=== PATIENT | female | born 1990 | race Two or more races ===

== ENCOUNTER 2021-10-22 04:58 | Inpatient (IN) | payer MEDICAID ==
[2021-10-20 10:11] LABS: Basophils # (auto) 0 10 ^3/uL (0-0.2); Basophils % (auto) 0.2 % (0.0-2.0); Eosinophils # (auto) 0 10 ^3/uL (0-0.8); Eosinophils % (auto) 0.2 % (0.0-7.0); Hematocrit 34.4 % (36.0-46.0); Hemoglobin 11.4 g/dL (12.2-16.2); Lymphocytes # (auto) 1.1 10 ^3/uL (0.4-5.4); Lymphocytes % (auto) 19.2 % (10.0-50.0); Mean Corpuscular Hemoglobin 28.6 pg (28.0-32.0); Mean Corpuscular Hgb Conc. 33.1 g/dL (32.0-36.0); Mean Corpuscular Volume 86.3 fL (80.0-100.0); Monocytes # (auto) 0.3 10 ^3/uL (0-1.3); Monocytes % (auto) 6.2 % (0.0-12.0); Neutrophils # (auto) 4.1 10 ^3/uL (1.6-8.6); Neutrophils % (auto) 74.2 % (37.0-80.0); Red Blood Cells 3.99 10^6/uL (4.0-5.20); White Blood Cell 5.5 10^3/uL (4.4-10.8)
[2021-10-20 10:15] LABS: Urine Bacteria FEW /hpf (None Seen); Urine Blood Negative /uL (Negative); Urine Mucus FEW (None Seen); Urine WBC 36 /hpf (0 - 5)
[2021-10-20 10:22] LABS: Amphetamine Screen, Urine NEGATIVE (NEGATIVE); Barbiturate Scree,Urine NEGATIVE (NEGATIVE); Benzodiazephine Screen, Urine NEGATIVE (NEGATIVE); Cannabinoid Screen, Urine NEGATIVE (NEGATIVE); Cocaine Screen, Urine NEGATIVE (NEGATIVE); Opiate Scree,Urine NEGATIVE (NEGATIVE); Phencyclidine Screen, Urine NEGATIVE (NEGATIVE)
[2021-10-20 10:28] LABS: INR 0.94 (0.9-1.15); Partial Thromboplastin Time 26.3 sec (23.6-33.0)
[2021-10-20 10:30] LABS: Albumin 2.8 g/dL (3.4-5.0); Calcium 8.5 mg/dL (8.5-10.1); Potassium 3.3 mmol/L (3.5-5.1)
[2021-10-20 10:35] LABS: BUN/Creatinine Ratio 10.7; Bilirubin, Total 0.2 mg/dL (0.2-1.0); Total Protein 6.9 g/dL (6.4-8.2)
[2021-10-21 08:06] LABS: RPR Non Reactive (Non Reactive)
[2021-10-22] VITALS (15 sets, daily range): BP systolic 82–114; BP diastolic 48–74
[~2021-10-22] VITALS: Ht 30.5 cm; Wt 0.5 kg
[~2021-10-22 04:58] MED LIST: PREN-96 PO
[2021-10-22] MEDS ORDERED: LACTATED RINGER'S 1,000 ML IV ONE (05:15)
[2021-10-22] MEDS ORDERED: ceFAZolin 1GM/50ML 50 ML IV ONE (05:15)
[2021-10-22] MEDS: LACTATED RINGER'S 1,000 ML IV SCH ×2 (07:32→13:55)
[2021-10-22] MEDS ORDERED: fentaNYL CITRATE 100 MCG/2 ML VL ONE (10:05)
[2021-10-22] MEDS ORDERED: MIDAZOLAM HCL 2MG/2ML 2ml VIAL (1mg/ml) ONE (10:05)
[2021-10-22] MEDS ORDERED: MORPHINE SULF PF 5 MG/10 ML VIAL ONE (10:05)
[2021-10-22] MEDS ORDERED: TETRACAINE 1% INJ 2 ML VIAL IJ ONE (10:07)
[2021-10-22] MEDS ORDERED: PHENYLEPHRINE HCL 10 MG/ML VL IV ONE (10:20)
[2021-10-22] MEDS ORDERED: IBUP800T27 PO (11:12)
[2021-10-22] MEDS ORDERED: HYDR-4902 PO (11:12)
[2021-10-22] MEDS ORDERED: DOCU-94 PO (11:12)
[2021-10-22] MEDS ORDERED: ONDANSETRON HCL 4 MG/2 ML VIAL IV PRN ×3 (11:15→11:45)
[2021-10-22] MEDS ORDERED: LACT. RINGERS/OXYTOCIN 20UNITS 1,000 ML IV ONE (11:15)
[2021-10-22] MEDS ORDERED: MORPHINE SULFATE 4 MG/ML SYR/VIAL IV PRN (11:15)
[2021-10-22] MEDS ORDERED: ceFAZolin 1GM/50ML 50 ML IV SCH (11:15)
[2021-10-22] MEDS ORDERED: oxyTOCIN 10 UNIT/ML 10ML VIAL ONE (11:38)
[2021-10-22] MEDS ORDERED: ePHEDrine SULFATE 50 MG/ML AMP IV PRN (11:45)
[2021-10-22] MEDS ORDERED: NALOXONE HCL 0.4 MG/ML VIAL IV PRN (11:45)
[2021-10-22] MEDS ORDERED: DexAMETHasone SOD PHOS 10MG/1ML VIAL INJ IV PRN (11:45)
[2021-10-22] MEDS ORDERED: HYDROmorphone HCL 2 MG/ML VL/or syr IV PRN (11:45)
[2021-10-22] MEDS ORDERED: KETOROLAC TROMETH 30 MG/ML 1ML VIAL IV PRN (11:45)
[2021-10-22] MEDS ORDERED: diphenhdrAMINE HCL 50 MG/1 ML VL IV PRN (11:45)
[2021-10-22] MEDS ORDERED: NALBUPHINE HCL 10 MG/1ml INJECTION SUBCUT ONE (11:45)
[2021-10-22] MEDS ORDERED: MIDAZOLAM HCL 2MG/2ML 2ml VIAL (1mg/ml) IV PRN (11:45)
[2021-10-22] MEDS ORDERED: LABETALOL HCL 5 MG/ML 4ML SYRINGE IV PRN (11:45)
[2021-10-22] MEDS ORDERED: SODIUM CHLORIDE 0.9% 500 ML IV ONE (12:45)
[2021-10-22] MEDS ORDERED: ACETAMINOPHEN IV 1000 MG/100ML (10MG/ML) IV PRN (15:15)
[2021-10-22] MEDS: ACETAMINOPHEN IV 1000 MG/100ML (10MG/ML) IV PRN (15:41)
[2021-10-22] MEDS: ceFAZolin 1GM/50ML 50 ML IV SCH (17:44)
[2021-10-22 21:12] LABS: Basophils # (auto) 0 10 ^3/uL (0-0.2); Eosinophils # (auto) 0 10 ^3/uL (0-0.8); Hemoglobin 10.4 g/dL (12.2-16.2); Lymphocytes # (auto) 0.9 10 ^3/uL (0.4-5.4); Lymphocytes % (auto) 10.5 % (10.0-50.0); Mean Corpuscular Hemoglobin 30.1 pg (28.0-32.0); Mean Corpuscular Hgb Conc. 34.6 g/dL (32.0-36.0); Mean Corpuscular Volume 86.9 fL (80.0-100.0); Monocytes # (auto) 0.4 10 ^3/uL (0-1.3); Monocytes % (auto) 4.3 % (0.0-12.0); Neutrophils # (auto) 7.6 10 ^3/uL (1.6-8.6); Neutrophils % (auto) 85.2 % (37.0-80.0); Red Blood Cells 3.45 10^6/uL (4.0-5.20); Red Cell Distribution Width 14.6 % (11.8-14.3); White Blood Cell 8.9 10^3/uL (4.4-10.8)
[2021-10-23] VITALS (14 sets, daily range): BP systolic 89–131; BP diastolic 50–82
[2021-10-23] MEDS: ACETAMINOPHEN IV 1000 MG/100ML (10MG/ML) IV PRN (02:07)
[2021-10-23] MEDS: LACTATED RINGER'S 1,000 ML IV SCH (02:07)
[2021-10-23] MEDS: ceFAZolin 1GM/50ML 50 ML IV SCH ×2 (02:07→10:04)
[2021-10-23 07:38] LABS: Basophils # (auto) 0 10 ^3/uL (0-0.2); Basophils % (auto) 0.2 % (0.0-2.0); Eosinophils # (auto) 0 10 ^3/uL (0-0.8); Lymphocytes # (auto) 0.9 10 ^3/uL (0.4-5.4); Lymphocytes % (auto) 10.4 % (10.0-50.0); Mean Corpuscular Hemoglobin 29.8 pg (28.0-32.0); Mean Corpuscular Hgb Conc. 34.3 g/dL (32.0-36.0); Mean Corpuscular Volume 86.8 fL (80.0-100.0); Monocytes # (auto) 0.5 10 ^3/uL (0-1.3); Neutrophils % (auto) 83.4 % (37.0-80.0); Red Blood Cells 3.68 10^6/uL (4.0-5.20); Red Cell Distribution Width 15.3 % (11.8-14.3); White Blood Cell 8.4 10^3/uL (4.4-10.8)
[2021-10-23] MEDS ORDERED: HYDROcodone-ACET 5/325MG TAB PO PRN ×2 (08:30→18:54)
[2021-10-23] MEDS ORDERED: BISACODYL 10 MG RECT SUPP PR PRN (08:30)
[2021-10-23] MEDS ORDERED: LACTATED RINGER'S 1,000 ML IV SCH (08:30)
[2021-10-23] MEDS: IBUPROFEN 800 MG TAB PO PRN ×2 (08:56→16:17)
[2021-10-23] MEDS: DOCUSATE SOD 100 MG CAP PO SCH ×2 (10:05→22:27)
[2021-10-23] MEDS: DOCUSATE CALCIUM 240 MG CAP PO SCH (10:05)
[2021-10-23] MEDS: SIMETHICONE 80 MG CHEWABLE TABLET PO SCH ×3 (12:11→22:27)
[2021-10-23] MEDS: HYDROcodone-ACET 5/325MG TAB PO PRN (20:48)
[2021-10-24] MEDS: HYDROcodone-ACET 5/325MG TAB PO PRN (01:43)
[2021-10-24] MEDS: IBUPROFEN 800 MG TAB PO PRN ×2 (06:49→13:22)
[2021-10-24 07:00] VITALS: BP 115/71
[2021-10-24] MEDS: SIMETHICONE 80 MG CHEWABLE TABLET PO SCH (07:17)
[2021-10-24] MEDS: DOCUSATE SOD 100 MG CAP PO SCH (10:00)
[2021-10-24] MEDS: DOCUSATE CALCIUM 240 MG CAP PO SCH (10:00)
[2021-10-24 11:00] VITALS: BP 116/76
[2021-10-24 13:37] VITALS: BP 116/68
== END 2021-10-24 13:37 | disposition home or self-care (01) | DRG 539 ==
LOC: NUR 04:58 → LDRP 05:12
PROVIDERS: ADMIT Obstetrics & Gynecology; ATTEND Obstetrics & Gynecology
PROC: 0UL70CZ Occlusion of Bilateral Fallopian Tubes with Extraluminal Device, Open Approach (ICD-10-PCS; 2021-10-22)
PROC: 10D00Z1 Extraction of Products of Conception, Low, Open Approach (ICD-10-PCS; principal; 2021-10-22 10:14)
DX: O98.52 Other viral diseases complicating childbirth (principal); U07.1 COVID-19; O34.211 Maternal care for low transverse scar from previous cesarean delivery; Z37.0 Single live birth; Z30.2 Encounter for sterilization; Z3A.38 38 weeks gestation of pregnancy
CPT/HCPCS: 36415; 59025; 80053; 80307; 81001; 81002; 84112; 85025; 85610; 85730; 86592; 86850; 86900; 86901; 94760; 94762; 96360; 96361; 96365; 96366; G0378; J0131; J0690; J2250; J2405; J2590

== ENCOUNTER 2023-09-18 09:53 | Emergency (ER) | payer SELFPAY ==
[~2023-09-18] VITALS: Ht 165.1 cm; Wt 75.0 kg
[~2023-09-18 09:53] MED LIST changes: +DOCU-94 PO; +HYDR-4902 PO; +IBUP-1456 PO
[2023-09-18 12:23] LABS: Basophils # (auto) 0 10 ^3/uL (0-0.2); Basophils % (auto) 0.2 % (0.0-2.0); Eosinophils # (auto) 0 10 ^3/uL (0-0.8); Eosinophils % (auto) 0.1 % (0.0-7.0); Hemoglobin 13.5 g/dL (12.2-16.2); Lymphocytes # (auto) 1.6 10 ^3/uL (0.4-5.4); Lymphocytes % (auto) 14.5 % (10.0-50.0); Mean Corpuscular Hemoglobin 28.8 pg (28.0-32.0); Mean Corpuscular Hgb Conc. 32.9 g/dL (32.0-36.0); Mean Corpuscular Volume 87.6 fL (80.0-100.0); Monocytes # (auto) 0.5 10 ^3/uL (0-1.3); Neutrophils # (auto) 8.6 10 ^3/uL (1.6-8.6); Neutrophils % (auto) 80.2 % (37.0-80.0); Red Blood Cells 4.68 10^6/uL (4.0-5.20); Red Cell Distribution Width 13.6 % (11.8-14.3); White Blood Cell 10.7 10^3/uL (4.4-10.8)
[2023-09-18 13:03] LABS: Alanine Aminotransferase 13 U/L (7-40); Albumin 4.7 g/dL (3.2-4.8); Alkaline Phosphatase 108 U/L (46-116); Anion Gap 11 (5-15); Aspartate Aminotransferase 18 U/L (13-40); Bilirubin, Total 0.4 mg/dL (0.2-1.0); Blood Urea Nitrogen 7 mg/dL (9-23); Calcium 9.5 mg/dL (8.7-10.4); Carbon Dioxide 20 mmol/L (20-30); Chloride 107 mmol/L (98-107); Glucose 89 mg/dL (74-106); Magnesium 1.9 mg/dL (1.6-2.6); Potassium 3.9 mmol/L (3.5-5.1); Sodium 138 mmol/L (136-145); Total Protein 7.7 g/dL (5.7-8.2)
[2023-09-18] MEDS: KETOROLAC TROMETH 30 MG/ML 1ML VIAL IM ONE (16:28)
[2023-09-18] MEDS ORDERED: AML5T PO (17:03)
[2023-09-18 17:46] VITALS: BP 114/79; PULSE 84; RESP 16; TEMP 98.4; O2SAT 100
== END 2023-09-18 17:52 | disposition home or self-care (01) ==
LOC: ER 09:53 → EDBD 09:53 → ER 17:48
DX: I10 Essential (primary) hypertension (principal); R51.9 Headache, unspecified; Z79.899 Other long term (current) drug therapy
CPT/HCPCS: 36415; 70450; 80053; 83735; 84484; 85025; 96372; 99285; J1885